=== PATIENT | female | born 1985 | race Caucasian/White ===

== ENCOUNTER 2019-12-24 02:32 | Emergency (ER) | payer OTHER ==
[~2019-12-24] VITALS: Ht 144.8 cm; Wt 95.3 kg
--- NOTE | 2019-12-24 02:40 | NUR ---
ED Nurse Note: BROUGHT IN BY [facility] FROM HOME C/O LOWER BACK PAIN WITH HX SCOLIOSIS AND ARHTRITIS. DENIES TRAUMA TO BACK. PT STATES TAKING NORCO AT 2300 BUT NOT EFFECTIVE. VSS, NAD, AAOX4 ,AMBULATORY, ERMD AT BEDSIDE.
[2019-12-24 02:42] VITALS: BP 127/76
[2019-12-24] MEDS ORDERED: Morphine Sulfate 2mg/ml Inj(IV/IM USE ONLY) IM ONE (02:45)
--- NOTE | 2019-12-24 02:45 | NUR ---
ED Nurse Note: URINE COLLECTED AND SENT TO LAB
[2019-12-24] MEDS ORDERED: IBUPROFEN600 M1 ORAL (02:50)
--- NOTE | 2019-12-24 02:51 | Emergency Room Report ---
History of Present Illness General Chief Complaint: Lower Back Pain or Injury Source: Patient Present Illness HPI This a 34-year-old female who has a history of CHF, seizure/pseudoseizure, scoliosis with chronic back pain. She presents with chief complaint of back pain. Is been on and off problem. She was in the hospital 2 weeks ago for the same. He complained of pain to her lower back. Pain is 8 out of 10. No nausea no vomiting. No fever chills. No radiation. Said her [place] is not helping. Denies any other complaint. No urinary complaint. Allergies: Coded Allergies: IODINE (Verified Allergy, Unknown, 12/24/19) LEVOFLOXACIN (Verified Allergy, Unknown, 12/24/19) PENICILLINS (Verified Allergy, Unknown, 12/24/19) ZOLPIDEM (Verified Allergy, Unknown, 12/24/19) Uncoded Allergies: BILACIN (Allergy, Unknown, 12/24/19) COVID-19 Screening Contact w/high risk pt: No Experienced COVID-19 symptoms?: No COVID-19 Testing performed WORK FROM HOME: No Patient History Past Medical History: see triage record, old chart reviewed, CHF, seizures, psych hx Past Surgical History: none Pertinent Family History: none Social History: Denies: smoking Now: No Immunizations: other Reviewed Nursing Documentation: PMH: Agreed; PSxH: Agreed Nursing Documentation-PMH Hx Seizures: Yes Review of Systems Eye: Denies: eye pain, blurred vision ENT: Denies: ear pain, nose congestion, throat swelling Respiratory: Denies: cough, shortness of breath Cardiovascular: Denies: chest pain, palpitations Gastrointestinal: Denies: abdominal pain, diarrhea, nausea, vomiting Musculoskeletal: Reports: back pain; Denies: joint pain Skin: Denies: rash Neurological: Denies: headache, numbness Endocrine: Denies: increased thirst, increased urine Hematologic/Lymphatic: Denies: easy bruising All Other Systems: negative except mentioned in HPI Physical Exam Vital Signs Date Time Temp Pulse Resp B/P (MAP) Pulse Ox O2 Delivery O2 Flow Rate FiO2 12/24/19 02:35 98.4 82 16 99/69 (79) 99 Room Air Vitals normal Sp02 EP Interpretation: reviewed, normal General Appearance: well appearing, no apparent distress, alert, obese Head: normocephalic, atraumatic Eyes: bilateral eye PERRL, bilateral eye EOMI ENT: hearing grossly normal, normal pharynx Neck: full range of motion, supple, no meningismus Respiratory: chest non-tender, lungs clear, normal breath sounds Cardiovascular #1: regular rate, rhythm, no murmur Gastrointestinal: normal bowel sounds, non tender, no mass, no organomegaly, no bruit, non-distended Musculoskeletal: back normal, normal range of motion, gait/station normal Psychiatric: mood/affect normal Medical Decision Making Diagnostic Impression: Primary Impression: Low back pain Qualified Codes: M54.5 - Low back pain ER Course Patient presents with back pain. This is a chronic problem. No evidence of cauda equina syndrome, spinal epidural abscess or neoplastic process. Patient is walking around without any difficulty. She has forward dose of morphine here. Last Vital Signs Date Time Temp Pulse Resp B/P (MAP) Pulse Ox O2 Delivery O2 Flow Rate FiO2 12/24/19 02:42 98.2 72 16 127/76 99 Room Air Status: improved Disposition: HOME, SELF-CARE Condition: Stable Scripts Ibuprofen* (MOTRIN*) 600 Mg Tablet 600 MG ORAL Q6H PRN for For Pain, #30 TAB 0 Refills Prov: Tank Bergman MD 12/24/19 Patient Instructions: Back Pain, Adult Additional Instructions: Follow-up with your doctor in 7 days. Return if symptoms worsen. Tank Bergman MD Dec 24, 2019 02:51
[2019-12-24 02:58] LABS: BILIRUBIN, URINE NEGATIVE (NEGATIVE); GLUCOSE, URINE (UA) NEGATIVE (NEGATIVE); KETONES,URINE NEGATIVE (NEGATIVE); LEUKOCYTE ESTERASE ,URINE 1+ (NEGATIVE); NITRITE,URINE NEGATIVE (NEGATIVE); PH,URINE 6 (4.5-8.0); PROTEIN,URINE 1+ (NEGATIVE); UROBILINOGEN,URINE NORMAL MG/DL (0.0-1.0)
[2019-12-24 02:59] LABS: COLOR,URINE YELLOW
[2019-12-24 03:08] LABS: APPEARANCE,URINE SLIGHTLY CLOUDY
[2019-12-24 03:30] VITALS: BP 131/70
--- NOTE | 2019-12-24 03:30 | NUR ---
ER DISCHARGE NOTE: Patient is cleared to be discharged per ERMD, pt is aox4, on room air, with stable vital signs. pt was given dc and prescription instructions, pt was able to verbalize understanding, pt id band removed without complications. pt is able to ambulate with steady gait. pt took all belongings.
== END 2019-12-24 03:30 | disposition home or self-care (01) ==
LOC: EDBD 02:32 → EMR 03:01
DX: M54.5 Low back pain (principal); G40.909 Epilepsy, unspecified, not intractable, without status epilepticus; Z88.0 Allergy status to penicillin; Z88.8 Allergy status to other drugs, medicaments and biological substances
CPT/HCPCS: 81003; 96372; J2270; Z7502; 99283